=== PATIENT | male | born 1940 | race Caucasian/White ===

== ENCOUNTER → 2018-05-06 07:52 | Day surgery (SDC) | payer MEDICARE ==
[~2018-05-06 07:52] MED LIST: Aspirin 81 mg CHEW TAB* 81 MG TAB.CHEW PO SCH; Atenolol TAB* 50 MG PO SCH; Heparin 2 UNITS/ML IVPREMIX* 2,000 ML IV ONE; Heparin(*) 1000 UNIT/ML 10 ML VIAL CATH LAB IV ONE; Iohexol 350 (CONTRAST) 200 ML MDV IV ONE; Lidocaine 1% INJ* 10 MG/ML 30 ML SDV ONE; Midazolam* 1 MG/ML 10 ML VIAL (10 MG) ONE; NS 0.9% 1000 ML* 1,000 ML IV SCH; VERAPAMIL 2.5 MG/ML 2 ML VIAL ** 5 mg/2 ml ONE; fentaNYL* 50 MCG/ML 5 ML VIAL (250 MCG VIAL) ONE; nitroGLYCERIN DRIP* 25,000 MCG/250 ML BTL ONE
[2018-05-06 09:01] LABS: ABS Basophils 0 10^3/ul (0-0.2); ABS Eosinophils 0.1 10^3/ul (0-0.6); ABS Lymphocytes 0.8 10^3/ul (1.0-4.8); ABS Monocytes 0.6 10^3/ul (0-0.8); ABS Neutrophils 4.2 10^3/ul (1.5-7.7); ABS Nucleated RBC 0 10^3/ul; Eosinophil % 1.9 % (0-6); Hematocrit 48 % (42-52); Hemoglobin 16.3 g/dl (14.0-18.0); Lymphocyte % 13.4 % (25-47); Mean Corpuscular HGB Conc 34 g/dl (31-36); Mean Corpuscular Hemoglobin 31 pg (27-31); Mean Corpuscular Volume 91 fL (80-94); Nucleated Red Blood Cells % 0.2; Platelet Count 229 10^3/ul (150-450); Red Blood Count 5.31 10^6/ul (4.00-5.40); Red Cell Distribution Width 14 % (10.5-15); White Blood Count 5.6 10^3/ul (3.5-10.8)
[2018-05-06 09:06] LABS: INR 0.94 (0.77-1.02)
[2018-05-06 09:16] LABS: EGFR Non-African American 89.1 (>60)
[2018-05-06 13:45] VITALS: BP 128/71
--- NOTE | 2018-05-07 08:44 | CATH ---
CC: Dr. Watkins; Dr. Haroon Barnard * CATH REPORT: DATE OF CATH: 05/06/18 - [facility] CATH PRIMARY CARE PHYSICIAN: Dr. Watkins. SPEEDER MACHINE OPERATOR: Dr. Haroon Barnard. 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 HISTORY: An 78-year-old male numerous cardiac risk factors with symptomatic nonsustained VT. He is referred for coronary angiography to rule out coronary artery disease. Stress imaging showed no ischemia. PROCEDURE: Access right radial artery sheath 6F Slender. With 2 separate punctures with pulsatile blood return, I was unable to advance the hydrophilic wire. Radial approach was therefore abandoned and switched to right common femoral. A 6.5-Polish sheath was placed in the right common femoral artery, required a Wholey wire for access, the iliac artery was extremely tortuous, but had no stenosis. DIAGNOSTIC CATHETER: 6-FL 4, 6-FR 4, 6F pigtail. HEMODYNAMICS: 96/52. LV 101/6, no aortic valve gradient on pullback. ANGIOGRAPHY: Left main: The left main is superior, normal, has no stenosis. LAD: The LAD is large, surprisingly smooth, extends to the apex, it has somewhat slow flow, but has no stenosis. It supplies a number of small diagonals, followed by a moderate mid diagonal. Circumflex: The circumflex is not dominant, supplies a moderate bifurcated marginal, ends with a small posterolateral, the circumflex is smooth, has no stenosis. RCA: The RCA is dominant, large, surprisingly smooth, supplies a large PDA and posterolateral, has no stenosis. LV gram: There was ectopy with ventriculogram; however, I have a subjective impression of mild global hypokinesis with estimated LVEF of 45% to 50%. There was ectopy-induced MR. CONCLUSION: 1. Unsuccessful right radial artery access due to inability to advance the hydrophilic wire past mid forearm. 2. 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 3. No obstructive coronary artery disease. 4. Mildly reduced left ventricular systolic function with global hypokinesis. [id number]/[facility] #: [id number] [facility]
== END | disposition home or self-care (01) ==
LOC: CHICATH 07:52
PROVIDERS: ATTEND Internal Medicine Cardiovascular Disease
DX: I47.2 Ventricular tachycardia (principal); R94.39 Abnormal result of other cardiovascular function study; R42 Dizziness and giddiness; I49.3 Ventricular premature depolarization; Z72.0 Tobacco use; I10 Essential (primary) hypertension; E78.00 Pure hypercholesterolemia, unspecified; J44.9 Chronic obstructive pulmonary disease, unspecified; E55.9 Vitamin D deficiency, unspecified; R94.31 Abnormal electrocardiogram [ECG] [EKG]; R06.00 Dyspnea, unspecified
CPT/HCPCS: 36415; 80053; 85025; 85610; 93458; 99156; 99157; C1760; C1887; J1644; J2250; J3010